=== PATIENT | female | born 1965 | race Two or more races ===

== ENCOUNTER 2024-04-07 16:16 | Outpatient (RCR) | payer MEDICAID, SELFPAY ==
--- NOTE | 2024-04-07 17:47 | PTNOTE_ITS ---
PT OP Progress/Discharge Note Date of Service: 04/07/24 Progress Note/DC Note Progress Note/Discharge Note: Progress Note Patient Information Visit Reasons: Bilateral knee pain Service Continue Service or Discharge: Continue Service Status Subjective: Pt doesn't know if therapy has helped the knees since the pain comes and goes. She wants to continue with therapy. Objective: L knee AROM: Flexion: 120 deg Extension: full Gait: symmetrical SLR: 45 deg Assessment: Pt has attended 5 therapy sessions of the 6 on the therapy order. Pt had 12 authorized visits but they tomorrow. Pt does therex with low tissue irr itability and ssx come and go consistent with OA. I'm not sure more therapy will help since progress so far has been minimal. Plan: In order to continue with therapy we need provider's signature and more authorized visits. Procedure Charges Therapeutic Exercise 30 minutes: Yes
== END 2024-05-03 23:59 | disposition home or self-care (01) ==
LOC: CPTX 16:16
PROVIDERS: PCP Family Medicine; Referring Provider Family Medicine; Visit Provider Family Medicine
DX: M25.562 Pain in left knee (principal)
CPT/HCPCS: 97110

== ENCOUNTER → 2024-06-03 | Outpatient (CLI) | payer MEDICAID, SELFPAY ==
--- NOTE | 2024-06-03 12:30 | XR_ITS ---
Examination: Breast ultrasound, unilateral, right complete Date and time of exam: June 03, 2024 1234 hrs. Indications: Mammogram 02/28/2024 12 mm focal asymmetry upper inner right breast Technique: Real-time shi scale ultrasonographic imaging performed right breast including all 4 quadrants as well as nipple retroareolar and axillary region. Findings: No cystic or solid mass Dilated ducts 6 and 11:00 position right breast Impression: BI-RADS Category 2: Benign findings
--- NOTE | 2024-06-03 13:15 | XR_ITS ---
Examination: Diagnostic digital mammography, unilateral, right Computer aided detection 3-D breast Tomosynthesis, unilateral Date and time of exam: June 03, 2024 1249 hrs. Indications: Mammogram 02/28/2024 12 mm focal asymmetry upper inner right breast Technique: Nonmagnified MLO, CC views of the right breast have been obtained, reconstructed from 3-D Tomosynthesis images. R2 computer aided detection program utilized for evaluation of suspicious masses and/or abnormal calcifications. 3-D Tomosynthesis images obtained. Findings: The breast is heterogeneously dense, which may obscure small masses No suspicious mass is noted on the spot compression views Benign calcifications Impression: BI-RADS category 2: Benign findings Return to yearly follow-up mammography
== END | disposition home or self-care (01) ==
PROVIDERS: PCP Family Medicine; Referring Provider Family Medicine; Visit Provider Family Medicine
DX: R92.321 Mammographic fibroglandular density, right breast (principal); R92.1 Mammographic calcification found on diagnostic imaging of breast; N64.89 Other specified disorders of breast
CPT/HCPCS: 76641; 77061; 77065; G0279

== ENCOUNTER 2024-07-03 16:00 | Outpatient (RCR) | payer MEDICAID, SELFPAY ==
--- NOTE | 2024-06-05 14:23 | PT.ODAYNRPT ---
PT Outpatient Daily Note OP Daily Note Outpatient Physical Therapy Treatment Date: 06/05/24 Visit Reasons: Bilateral knee pain Subjective: Pt reports knee is doing ok, continues to get occasional pain but notices is less frequent. Pt shared she still can not be on her feet for prolonged period. Objective: Please see flow sheet for ther ex list. Assessment: Interventions completed with no complaints. Plan: Assess response to treatment, continue with POC. Length of Time (minutes) of Treatment: 30 Minutes Procedure Charges Therapeutic Exercise 30 minutes: Yes
--- NOTE | 2024-06-11 17:23 | PT.ODAYNRPT ---
PT Outpatient Daily Note OP Daily Note Outpatient Physical Therapy Treatment Date: 06/11/24 Visit Reasons: Bilateral knee pain Subjective: The L knee pain comes and goes Objective: See F/S for therex Assessment: Hard to tell if therapy is affecting ssx or if making progress with goals. Pain seems to be less intense than before therapy. Plan: Continue per POC Length of Time (minutes) of Treatment: 30 Minutes Procedure Charges Therapeutic Exercise 30 minutes: Yes
--- NOTE | 2024-06-17 17:39 | PT.ODAYNRPT ---
PT Outpatient Daily Note OP Daily Note Outpatient Physical Therapy Treatment Date: 06/17/24 Visit Reasons: Bilateral knee pain Subjective: The L knee pain comes and goes Objective: See F/S for therex Assessment: Hard to tell if therapy is affecting ssx or if making progress with goals. Pain seems to be less intense than before therapy. Plan: Continue per POC Length of Time (minutes) of Treatment: 30 Minutes Procedure Charges Therapeutic Exercise 30 minutes: Yes
--- NOTE | 2024-06-19 17:54 | PT.ODAYNRPT ---
PT Outpatient Daily Note OP Daily Note Outpatient Physical Therapy Treatment Date: 06/19/24 Visit Reasons: Bilateral knee pain Subjective: The L knee pain comes and goes but less than before therapy. Objective: See F/S for therex Assessment: Pain seems to be less intense than before therapy. Plan: Continue per POC Length of Time (minutes) of Treatment: 30 Minutes Procedure Charges Therapeutic Exercise 30 minutes: Yes
--- NOTE | 2024-06-26 16:53 | PT.ODAYNRPT ---
PT Outpatient Daily Note OP Daily Note Outpatient Physical Therapy Treatment Date: 06/26/24 Visit Reasons: Bilateral knee pain Subjective: The L knee pain comes and goes but less than before therapy. Objective: See F/S for therex Assessment: Pain seems to be less intense than before therapy. Plan: Continue per POC Length of Time (minutes) of Treatment: 30 Minutes Procedure Charges Therapeutic Exercise 30 minutes: Yes
--- NOTE | 2024-07-03 16:25 | PT.ODAYNRPT ---
PT Outpatient Daily Note OP Daily Note Outpatient Physical Therapy Treatment Date: 07/03/24 Visit Reasons: Bilateral knee pain Subjective: No new complaints or concerns. Objective: Pleas see flow sheet for ther ex list. Assessment: Pt tolerated interventions well, cues for heel toe stepping during walking tandem exercise. Plan: Pt has one more visit, assess for note. Length of Time (minutes) of Treatment: 30 Minutes Procedure Charges Therapeutic Exercise 30 minutes: Yes
== END 2024-07-04 23:59 | disposition home or self-care (01) ==
LOC: CPTX 16:00
PROVIDERS: PCP Family Medicine; Referring Provider Family Medicine; Visit Provider Family Medicine
DX: M25.562 Pain in left knee (principal); M25.561 Pain in right knee
CPT/HCPCS: 97110

== ENCOUNTER 2024-07-10 16:09 | Outpatient (RCR) | payer MEDICAID, SELFPAY ==
--- NOTE | 2024-07-10 17:29 | PT.ODAYNRPT ---
PT Outpatient Daily Note OP Daily Note Outpatient Physical Therapy Treatment Date: 07/10/24 Visit Reasons: Bilateral knee pain Subjective: The L knee pain comes and goes but less than before therapy. Objective: See F/S for therex Assessment: Pain seems to be less intense than before therapy. Low tissue irritability with lunging and total gym squatting Plan: Continue per POC Length of Time (minutes) of Treatment: 30 Minutes Procedure Charges Therapeutic Exercise 30 minutes: Yes
== END 2024-08-01 23:59 | disposition home or self-care (01) ==
LOC: CPTX 16:09
PROVIDERS: PCP Family Medicine; Referring Provider Family Medicine; Visit Provider Family Medicine
DX: M25.562 Pain in left knee (principal)
CPT/HCPCS: 97110

== ENCOUNTER 2025-05-11 21:59 | Emergency (ER) | payer MEDICAID, SELFPAY ==
[2025-05-11 22:02] VITALS: BMI 32.9
[2025-05-11 22:34] VITALS: BP 168/95; PULSE 93; RESP 18; TEMP 36.8; O2SAT 96
--- NOTE | 2025-05-12 01:49 | PD.EDEAR ---
ED Ear RME/HPI General Chief complaint: Ear Stated complaint: L EAR PAIN Time Seen by Provider: 05/11/25 22:02 Arrival date/time: 05/11/25 21:59 This is a case of 60-year-old female with no medical history came into the emergency room due to left ear pain today due to worsening of the pain now the pain is also on the right ear and thus patient decided to sought consult here in the emergency room denies any dizziness denies chills or ear discharge denies injury or trauma Limitations: no limitations Related Data Home Medications ?Medication ?Instructions ?Recorded ?Confirmed calcitriol 0.25 mcg capsule 0.25 mcg PO QDAY 10/03/18 10/03/18 calcium 650 mg-vitamin D3 12.5 10/03/18 mcg-vitamin K 40 mcg chewable tablet levothyroxine 112 mcg tablet 112 mcg PO QDAY 10/03/18 10/03/18 verapamil 120 mg tablet 120 mg PO TID 10/03/18 10/03/18 Previous Rx's ?Medication ?Instructions ?Recorded amoxicillin 875 mg-potassium 1 tab PO BID #20 tabs 05/11/25 clavulanate 125 mg tablet ibuprofen 800 mg tablet 800 mg PO Q8H PRN pain #20 tabs 05/11/25 ofloxacin 0.3 % ear drops 5 drp otic (ear) BID 7 days #10 mL 05/11/25 Allergies Allergy/AdvReac Type Severity Reaction Status Date / Time No Known Allergies Allergy Verified 05/11/25 22:05 Review of Systems Review of Systems Systems Reviewed: All systems reviewed, normal except as documented Constitutional Constitutional: Reports system reviewed and no additional complaints, except as documented and Reports as per HPI ENT Ears, Nose, Mouth, and Throat: Reports system reviewed and no additional complaints, except as documented and Reports as per HPI Cardiovascular Cardiovascular: Reports system reviewed and no additional complaints, except as documented and Reports as per HPI Respiratory Respiratory: Reports system reviewed and no additional complaints, except as documented and Reports as per HPI Gastrointestinal Gastrointestinal: Reports system reviewed and no additional complaints, except as documented and Reports as per HPI Neurologic Neurologic: Reports system reviewed and no additional complaints, except as documented and Reports as per HPI Past Medical History Past Medical History NEUROLOGIC: Negative Neurological Disorders or Seizures CARDIAC: Positive Cardiac Disorders and Hypertension; Negative Congestive Heart Failure RESPIRATORY: Negative Chronic Obstructive Pulmonary Disease (COPD) GASTROINTESTINAL: Negative Gastrointestinal Disorders GENITOURINARY: Negative Genitourinary Disorders or Renal Disease MUSCULOSKELETAL: Negative Musculoskeletal Disorders ENDOCRINE: Positive Hypothyroidism; Negative Diabetes Mellitus Type 1 or Diabetes Mellitus Type 2 HEMATOLOGIC: Negative Blood Disorders PSYCHO/SOCIAL: Positive Anxiety OTHER HISTORY: Negative Falls, Blood Transfusions, Blood Transfusion Reaction or Anesthesia Reactions Family History FAMILY HISTORY: Negative Family Cardiac Disorders Surgical History SURGICAL: Positive Thyroidectomy (CANCER REMOVED, NO CHEMO NO RADIATION), Tubal Ligation and Section (X3); Negative Cardiac Surgery, Abdominal Surgery or Joint Replacement Social History SMOKING STATUS: Never smoker ED Exam General Limitations: Present no limitations General appearance: Present alert, in no apparent distress and other (Patient is awake alert oriented not in distress nontoxic looking well-hydrated well ) Head Head exam: Present atraumatic, normocephalic and normal inspection Eye Eye exam: Present normal appearance, PERRL and EOMI ENT ENT exam: Present normal exam, normal oropharynx, mucous membranes moist and other (Bilateral ear canal noted red tender with yellowish discharge no mastoid tenderness bilaterally tympanic membrane red bulging retracted) Neck Neck exam: Present normal inspection, full ROM and trachea midline; Absent tenderness, meningismus, lymphadenopathy or thyromegaly Chest Chest inspection: Present normal inspection and symmetric chest wall rise; Absent tenderness, rash or abscess Respiratory Respiratory exam: Present normal lung sounds bilaterally; Absent respiratory distress, wheezes, stridor, accessory muscle use or prolonged expiratory phase Cardiovascular Cardiovascular exam: Present regular rate, normal rhythm and normal heart sounds; Absent bradycardia, tachycardia, irregular rhythm, systolic murmur or diastolic murmur Abdominal Exam Abdominal exam: Present soft and normal bowel sounds; Absent distention, tenderness, guarding, rebound, rigidity, diminished bowel sounds, hyperactive bowel sounds, hypoactive bowel sounds or organomegaly Extremities Exam Extremities exam: Present normal inspection and full ROM Back Exam Back exam: Present normal inspection and full ROM Neurological Exam Neurological exam: Present alert, oriented X3, CN II-XII intact, normal gait and reflexes normal; Absent motor sensory deficit Psychiatric Psychiatric exam: Present normal affect and normal mood Skin Skin exam: Present warm, dry, intact and normal color Course Quality Measures none Orders Category Date Time Status cefTRIAXone [Rocephin] 1,000 mg Med 05/11/25 22:47 Discontinued Lidocaine 1% Pf Vial 5ml [Xylocaine 1% 5 ml] 2.1 ml IM X1 Vital Signs Vital signs: Vital Signs Temperature 98.2 F 05/11/25 22:34 Pulse Rate 93 05/11/25 22:34 Respiratory Rate 18 05/11/25 22:34 Blood Pressure 168/95 H 05/11/25 22:34 Pulse Oximetry (%) 96 05/11/25 22:34 Oxygen Delivery Method Room Air 05/11/25 22:34 Oxygen saturation is 96% on room air Ear MDM Narrative MDM Narrative:: This is a case of 60-year-old female with no medical history came into the emergency room due to left ear pain today due to worsening of the pain now the pain is also on the right ear and thus patient decided to sought consult here in the emergency room denies any dizziness denies chills or ear discharge denies injury or trauma physical examination patient is awake alert oriented not in distress nontoxic looking well-hydrated well-nourished noted bilateral ear canal redness swelling with mild discharge no cellulitis no mastoid tenderness bilaterally tympanic membrane red bulging retracted but not perforated based on my physical examination and history patient symptoms suggestive of acute suppurative otitis media patient was given ceftriaxone IM here in the emergency room and was prescribed with Augmentin and ofloxacin treatment patient will follow-up with PCP in 2 days for reevaluation and referred to ENT for acute suppurative otitis media and for any worsening symptoms and emergent concern return precaution in the ER is advised Patient was discharged with comfortable condition walking with stable gait. Patient verbalized no further complains explained diagnosis and answered patient question. Patient is comfortable with the proposed management plan including the need to follow up with his/her primary care physician and any specialist if applicable Discussed patient for any urgent condition or worsening sx, He/She needed to go to emergency room immediately or call 911. Patient acknowledge the responsibility to follow up as instructed and to monitor her/his symptoms. For any persistence of the symptoms for more than 3-5 days return precaution advised. Discussed the result of the test and was given printed discharge instruction Patient data External records reviewed:: [facility] previous records Clinical information provided by:: patient Social determinants that could affect healthcare access:: none Patient has the following chronic illnesses:: None How is presenting disease/condition affected by chronic disease/condition?: no chronic disease Evaluation data The following diagnostics were reviewed and interpreted by me:: other (specify) (None) Lab and/or radiology exams considered but not ordered:: None Interpretation Summary: None Medications / Prescriptions Medications or Prescriptions considered but not ordered:: Given Medication administrations:: Medication Administration History Discontinued Medications Ceftriaxone Sodium 1,000 mg/ (Lidocaine HCl 2.1 ml) 0 mg IM X1 ONE Stop: 05/11/25 22:48 Last Admin: 05/11/25 23:09 Dose: 2.1 mg Documented By: SF Given Consultations Consultation(s) initiated? (list below): No Diagnosis Ear Differential Diagnosis: otitis externa, otitis media, foreign body in ear, ruptured TM and cerumen impaction Most likely diagnosis given after review of the tests above:: Acute suppurative otitis media Admission Indicated Admission indicated?: not indicated Explain why admission is indicated or not indicated:: Not indicated Admission Request Was there a request for admission?: No Admission Attestation Admission request attestation: Not in the Disposition Plan Disposition Plan: Discharge Discharge Attestation Discharge Attestation: The patient and all family members were given an opportunity to ask questions and understood the discharge instructions. Discharge instructions specifically effects, indications for sooner follow up or return to the emergency department, and the expected course of current diagnosis. Patient condition: Stable Discharge Plan Plan Patient Disposition: HOME (Self Care) Patient condition on transfer: Stable Prescriptions/Referrals Prescriptions/Med Rec: New amoxicillin-pot clavulanate 875-125 mg tablet 1 tab PO BID Qty: 20 0RF ibuprofen 800 mg tablet 800 mg PO Q8H PRN (Reason: pain) Qty: 20 0RF ofloxacin 0.3 % drops 5 drp otic (ear) BID 7 Days Qty: 10 0RF No Action verapamil 120 mg Tablet 120 mg PO TID calcitriol 0.25 mcg Capsule 0.25 mcg PO QDAY levothyroxine 112 mcg Tablet 112 mcg PO QDAY calcium-vitamin D3-vitamin K 650 mg-12.5 mcg-40 mcg Tablet,Chewable Problem List Clinical Impression: Acute suppurative otitis media Patient/Caregiver Discharge Instructions Education Materials: Common Middle Ear Problems, ED Otitis Media Antibiotic ... Additional Instructions: Follow-up with your primary care physician in 2 days for reevaluation and to be referred to ENT specialist for further evaluation and treatment of acute suppurative otitis media worsening symptoms or any emergent concern call 911 or go to the nearest emergency room take your medication as directed finish the course of antibiotic no Q-tips no cotton balls prevent water to enter both ears is advised Consulte con guzman m?dico de cabecera en dos d?as para asaf reevaluaci?n y para que lo remitan a un especialista en otorrinolaringolog?a para asaf evaluaci?n y tratamiento adicionales. Si los s?ntomas de la otitis media supurativa aguda empeoran o si surge alguna emergencia, llame al 911 o acuda a la rosita de emergencias m?s cercana. Pasatiempo samira medicamentos seg?n las indicaciones y complete el tratamiento antibi?demario. No use hisopos de algod?n ni bolitas de algod?n. Se recomienda evitar que entre agua en ambos o?dos. Print Language: Welsh Stand Alone Forms: Jolynn Award Info., Patient Portal Info Letter PA/ELECTRIC MOTOR TESTER Supervising Physician PA/ELECTRIC MOTOR TESTER Supervising Physician: DR chioma juárez
== END 2025-05-11 23:20 | disposition home or self-care (01) ==
LOC: SERX 23:26
PROVIDERS: Emergency Provider Emergency Medicine; PCP Family Medicine
DX: H66.003 Acute suppurative otitis media without spontaneous rupture of ear drum, bilateral (principal)
CPT/HCPCS: 96372; 99282; J0696; J3490

== ENCOUNTER → 2025-05-17 | Outpatient (CLI) | payer MEDICAID, SELFPAY ==
--- NOTE | 2025-05-17 07:30 | ECHO_ITS ---
Patient Info Name: Demetria Gutierres Age: 60 years : 1965 Gender: Female Ht: 157 cm Wt: 82 kg BSA: 1.92 m2 BP: 145 / 92 mmHg HR: 76 bpm Exam Date: 05/17/2025 7:23 AM Admit Date: 05/17/2025 Site: [facility] Room Number: OP Patient Status: P Exam Type: CA echo doppler complete Hospice Music Therapist: Yisel Grider Ordering Physician: Amina Vanessa Other Referring Physician: Terrance Leo Study Info Indications Cardiac murmur, unspecified - Primary Location: [facility] Left Ventricular Outflow Tract Name Value Normal LVOT 2D LVOT Diameter 1.9 cm LVOT Doppler LVOT Peak Velocity 78 cm/s LVOT Mean Gradient 1 mmHg LVOT VTI 21 cm LVOT VTI/AV VTI Ratio 0.4 LVOT Stroke Volume 59 ml Pulmonic Valve Name Value Normal PV Doppler PV Peak Velocity 87 cm/s PV Regurgitation Doppler RI Peak End Diastolic Velocity 67 cm/s Mitral Valve Name Value Normal MV Doppler MV Decel Andrews 466 cm/s2 MV PHT 43 ms MV Area (PHT) 5.1 cm2 4.0-5.0 MV Diastolic Function MV E Peak Velocity 69 cm/s MV A Peak Velocity 69 cm/s MV E/A 1.0 MV Annular TDI MV Septal e' Velocity 7.0 cm/s MV E/e' (Septal) 9.9 MV Lateral e' Velocity 8.6 cm/s MV E/e' (Lateral) 8.0 MV e' Average 7.78 cm/s MV E/e' (Average) 9.0 Tricuspid Valve Name Value Normal Estimated PAP/RSVP RA Pressure 3 mmHg <=5 TV Annular TDI TV Lateral Taylor s' Velocity 11.2 cm/s >=9.5 Aortic Valve Name Value Normal AV Doppler AV Peak Velocity 273 cm/s AV Mean Gradient 17 mmHg AV VTI 56 cm AV Area (Cont Eq VTI) 1.0 cm2 >=3.0 AV Area (Cont Eq Dave) 0.8 cm2 AV DI (Dave) 0.29 AV Regurgitation 2D LVOT Area 2.8 cm2 Ventricles Name Value Normal LV Dimensions 2D/MM IVS Diastolic Thickness (2D) 1.2 cm 0.6-0.9 LVID Diastole (2D) 3.8 cm 3.8-5.2 LVIW Diastolic Thickness (2D) 1.1 cm 0.6-0.9 LVID Systole (2D) 2.7 cm 2.2-3.5 LVOT Diameter 1.9 cm LV Mass (2D Cubed) 143.79 g 67.00-162.00 LV Mass Index (2D Cubed) 75 g/m2 43-95 Relative Wall Thickness (2D) 0.58 <=0.42 IVS/LVIW Diastolic Thickness (2D) 1.09 0.00-1.50 LV Fractional Shortening/Ejection Fraction 2D/MM LV Fractional Shortening (2D) 29 % 27-45 LV EF (2D Teichholz) 56 % RV Dimensions 2D/MM TV Lateral Taylor s' Velocity 11.2 cm/s >=9.5 Atria Name Value Normal LA Dimensions LA Volume (4C A-L) 28 ml LA Volume (BP A-L) 28 ml Left Ventricle Left ventricular chamber dimension is normal. Left ventricular systolic function is normal with visually estimated ejection fraction of 60-65%. There is normal geometry noted in the left ventricle. Left ventricular segmental wall motion is normal. There is grade I diastolic dysfunction in the left ventricle. Right Ventricle Right ventricular chamber dimension is normal. Right ventricular systolic function is normal. Left Atrium Left atrial chamber dimension is normal. Right Atrium Right atrial chamber dimension is normal. Aortic Valve The aortic valve is trileaflet. There is mild aortic valve sclerosis. There is mild to moderate aortic valve stenosis with a peak velocity of 273 cm/s, mean gradient of 17 mmHg, and aortic valve area of 1.0 cm2. There is no aortic valve regurgitation. Pulmonic Valve The pulmonic valve is normal. There is no pulmonic valve stenosis. There is trace pulmonic regurgitation. Mitral Valve The mitral valve has normal leaflets. There is no mitral valve stenosis. There is no mitral valve regurgitation. Tricuspid Valve The tricuspid valve leaflets are normal. There is no tricuspid valve stenosis. There is no tricuspid valve regurgitation. Unable to estimate pulmonary artery systolic pressure due to inadequate tricuspid regurgitant envelope. Pericardium/Pleural The pericardium appears normal. There is trivial pericardial effusion with no tamponade. No pleural effusion visualized. Inferior Vena Cava Normal inferior vena cava with >50% collapse upon inspiration consistent with normal right atrial pressure, 3 mmHg. Summary 1. Left ventricle size is normal and systolic function is normal. Estimated ejection fraction is 60-65%. There is grade I diastolic dysfunction. 2. Right ventricle chamber size is normal and systolic function is normal. 3. There is mild aortic valve sclerosis with mild to moderate stenosis and no regurgitation. 4. There is no mitral valve regurgitation. 5. There is no tricuspid valve regurgitation. 6. trace pulmonic valve regurgitation. 7. The left atrium is normal. The right atrium is normal. 8. Normal IVC with estimated RA pressure 3 mmHg. 9. Prior study from 10/13/2021. Report Signatures Finalized by Alexa Medel on 05/17/2025 03:02 PM
== END | disposition home or self-care (01) ==
LOC: SDIM 05-21 07:49
PROVIDERS: PCP Physician Assistant; Referring Provider Physician Assistant; Visit Provider Physician Assistant
DX: I50.30 Unspecified diastolic (congestive) heart failure (principal); I37.1 Nonrheumatic pulmonary valve insufficiency; I35.8 Other nonrheumatic aortic valve disorders; I35.0 Nonrheumatic aortic (valve) stenosis
CPT/HCPCS: 93306